=== PATIENT | male | born 1980 | race Hispanic/Latino ===

== ENCOUNTER 2017-02-23 14:02 | Emergency (ER) | payer BC, MEDICAID ==
[2017-02-23 14:23] VITALS: BP 129/80; PULSE 88; RESP 20; TEMP 98.3; O2SAT 98
--- NOTE | 2017-02-23 14:43 | ED PDOC ---
HPI: General Adult Time Seen by Provider: 02/23/17 14:21 Chief Complaint (Nursing): Lower Extremity Problem/Injury History Per: Patient Additional Complaint(s): Pt. states for the past week he's had atraumatic L ankle pain. Reports pain is worsened with walking. Denies trauma, fever, rash, calf pain. Past Medical History Reviewed: Historical Data, Nursing Documentation, Vital Signs Vital Signs: Last Vital Signs Temp 98.3 F 02/23/17 14:20 Pulse 88 02/23/17 14:20 Resp 20 02/23/17 14:20 BP 129/80 02/23/17 14:20 Pulse Ox 98 02/23/17 16:21 - Family History Family History: States: No Known Family Hx - Home Medications Home Medications: Ambulatory Orders Medication Instructions Recorded Cholecalciferol (Vitamin D3) 1 tab PO DAILY 05/14/15 [Vitamin D] Ibuprofen [Motrin] 600 mg PO Q8 #20 tab 05/15/15 Meloxicam [Mobic] 15 mg PO DAILY PRN #15 tab 02/23/17 - Allergies Allergies/Adverse Reactions: Allergies Allergy/AdvReac Type Severity Reaction Status Date / Time No Known Allergies Allergy Verified 02/23/17 14:19 Review of Systems ROS Statement: Except As Marked, All Systems Reviewed And Found Negative Physical Exam - Physical Exam Appears: Positive for: Well, Non-toxic, No Acute Distress Skin: Positive for: Normal Color, Warm. Negative for: Rash Pulses-Dorsalis Pedis (L): 2+ Pulses-Dorsalis Pedis (R): 2+ Extremity: Positive for: Normal ROM, Other (L ankle without swelling, tenderness , deformity, warmth, erythema or break in skin integrity). Negative for: Pedal Edema, Calf Tenderness (b/l) - Laboratory Results Result Diagrams: 02/23/17 14:50 02/23/17 14:50 - ECG O2 Sat by Pulse Oximetry: 98 - Radiology X-Ray: Interpreted by Me (Ankle x-ray) X-Ray Interpretation: Other (DJD on medial malleolus) - Progress ED Course And Treament: Labs ordered. Toradol 15mg IV given. Ankle x-rays ordered. Disposition - Clinical Impression Clinical Impression: Ankle pain - Patient ED Disposition Is Patient to be Admitted: No - Disposition Referrals: Randy Miller MD [Medical Doctor] - Disposition: Routine/Home Disposition Time: 16:20 Condition: STABLE Prescriptions: Meloxicam [Mobic] 15 mg PO DAILY PRN #15 tab PRN Reason: pain Instructions: Arthralgia (ED) Print Language: KOREAN
[2017-02-23 15:05] LABS: BASO # 0.1 K/uL (0.0-0.2); BASO % 0.9 % (0.0-2.0); EOS # 0.3 K/uL (0.0-0.7); EOS % 4.5 % (0.0-4.0); HEMATOCRIT 43.3 % (35.0-51.0); MEAN CELL VOLUME 90.5 fl (80.0-94.0); MEAN CORPUSCULAR HEMOGLOBIN 30.5 pg (27.0-31.0); MEAN CORPUSCULAR HGB CONC 33.7 g/dL (33.0-37.0); MEAN PLATELET VOLUME 8.9 fl (7.2-11.7); MONO # 0.5 K/uL (0.0-0.8); MONO % 7.5 % (0.0-10.0); NEUT # 4.2 K/uL (1.8-7.0); NEUT % 59.1 % (50.0-75.0); RED CELL DISTRIBUTION WIDTH 13.4 % (11.5-14.5); WHITE BLOOD COUNT 7.1 K/uL (4.8-10.8)
[2017-02-23 15:16] LABS: ALB/GLOB RATIO 1.2 (1.0-2.1); ALKALINE PHOSPHATASE 66 U/L (38-126); ALT/SGPT 55 U/L (21-72); AST/SGOT 35 U/L (17-59); BILIRUBIN,TOTAL 0.3 mg/dl (0.2-1.3); BLOOD UREA NITROGEN 14 mg/dl (9-20); CALCIUM 9.1 mg/dL (8.4-10.2); CARBON DIOXIDE 25 mmol/L (22-30); CHLORIDE 107 mmol/L (98-107); GFR AFRICAN-AMERICAN > 60; GLUCOSE,RANDOM 134 mg/dL (75-110); SODIUM 143 mmol/l (132-148); TOTAL PROTEIN 7.8 G/DL (6.3-8.2); URIC ACID 6.1 mg/Dl (3.5-8.5)
--- NOTE | 2017-02-23 17:06 | RAD ---
PROCEDURE: Left ankle 02/23/2017 HISTORY: pain COMPARISON: None FINDINGS: BONES: No evidence of acute displaced fracture nor dislocation. Osseous structures including ankle mortise intact. There appears to be some degenerative changes with osteophyte formation seen arising from the inferior tip of the medial malleolus. There also appears to be some irregularity of the inferomedial aspect of the distal fibula. [id number] posterior and small plantar calcaneal enthesophyte are present. JOINTS: As above. No evidence of dislocation SOFT TISSUES: No significant soft tissue swelling. There are no radiopaque foreign bodies. Normal. OTHER FINDINGS: None. IMPRESSION: No acute fractures. Minor DJD. Calcaneal enthesophytes as above
== END 2017-02-23 16:49 | disposition home or self-care (01) ==
LOC: H.ER 14:02
DX: M25.572 Pain in left ankle and joints of left foot (principal)
CPT/HCPCS: 73610; 80053; 84550; 85025; 96374; 99284; J1885

== ENCOUNTER 2017-09-22 17:02 | Emergency (ER) | payer BC ==
[2017-09-22 17:27] VITALS: RESP 17; O2SAT 98
--- NOTE | 2017-09-22 17:29 | ED PDOC ---
HPI: Chest Pain Time Seen by Provider: 09/22/17 17:18 Chief Complaint (Nursing): Chest Pain Chief Complaint (Provider): Chest Pain History Per: Patient, EMS History/Exam Limitations: no limitations Onset/Duration Of Symptoms: Hrs (2) Current Symptoms Are (Timing): Intermittent Episodes Severity: Moderate Pain Scale Rating Of: 3 Quality: Tightness Exacerbating Factors: Deep Breathing Alleviating Factors: None Additional Complaint(s): Substernal chest tightness radiating to left arm. Not assoc with SOB. No cough, congestion or fever. PMD: Provider TBD Past Medical History Reviewed: Historical Data, Nursing Documentation, Vital Signs Vital Signs: Last Vital Signs Temp 98.1 F 09/22/17 17:24 Pulse 67 09/22/17 17:24 Resp 17 09/22/17 17:24 BP 145/90 09/22/17 17:24 Pulse Ox 98 09/22/17 17:55 - Medical History PMH: No Chronic Diseases - Family History Family History: States: Unknown Family Hx - Home Medications Home Medications: Ambulatory Orders Medication Instructions Recorded Cholecalciferol (Vitamin D3) 1 tab PO DAILY 05/14/15 [Vitamin D] Ibuprofen [Motrin] 600 mg PO Q8 #20 tab 05/15/15 Meloxicam [Mobic] 15 mg PO DAILY PRN #15 tab 02/23/17 - Allergies Allergies/Adverse Reactions: Allergies Allergy/AdvReac Type Severity Reaction Status Date / Time No Known Allergies Allergy Verified 02/23/17 14:19 Review of Systems ROS Statement: Except As Marked, All Systems Reviewed And Found Negative Cardiovascular: Positive for: Chest Pain Physical Exam - Reviewed Nursing Documentation Reviewed: Yes Vital Signs Reviewed: Yes - Physical Exam Appears: Positive for: Non-toxic, No Acute Distress Head Exam: Positive for: ATRAUMATIC, NORMAL INSPECTION, NORMOCEPHALIC Skin: Positive for: Normal Color, Warm, DRY Eye Exam: Positive for: EOMI, Normal appearance, PERRL ENT: Positive for: Normal ENT Inspection Neck: Positive for: Normal, Painless ROM Cardiovascular/Chest: Positive for: Regular Rate, Rhythm Respiratory: Positive for: CNT, Normal Breath Sounds Gastrointestinal/Abdominal: Positive for: Normal Exam, Bowel Sounds, Soft Back: Positive for: Normal Inspection Extremity: Positive for: Normal ROM Neurologic/Psych: Positive for: Alert, Oriented - Laboratory Results Result Diagrams: 09/22/17 17:52 09/22/17 17:52 - ECG O2 Sat by Pulse Oximetry: 98 (RA) Pulse Ox Interpretation: Normal Medical Decision Making Medical Decision Making: Time: 17:27 Plan: - EKG - CMP - Troponin I - CBC - Chest X-Ray - Aspirin 325 mg PO Advised 24 hr obs for chest pain. Pt wants to go home and f/u outpt. Aware of risks including WA, arrhythmia and . Advisd to return immediately to ED if chest pain recurs. Time: 17:48 Chest X-Ray FINDINGS: LUNGS: No active pulmonary disease. PLEURA: No significant pleural effusion identified. No pneumothorax apparent. CARDIOVASCULAR: No radiographic findings to suggest acute or significant cardiovascular disease. OSSEOUS STRUCTURES: No significant abnormalities. VISUALIZED UPPER ABDOMEN: Normal. OTHER FINDINGS: None. IMPRESSION: No active disease. Disposition - Clinical Impression Clinical Impression: Chest pain - Patient ED Disposition Is Patient to be Admitted: No - Disposition Referrals: Shabana Dos Santos MD [Staff Provider] - Disposition: Routine/Home Disposition Time: 18:33 Condition: FAIR Instructions: Chest Pain (ED) Forms: [facility] (Tunisian)
[2017-09-22] MEDS ORDERED: Aspirin 325 mg EC Tablets PO ONE (17:35)
--- NOTE | 2017-09-22 17:50 | RAD ---
HISTORY: chest pain COMPARISON: No prior. TECHNIQUE: Chest PA and lateral FINDINGS: LUNGS: No active pulmonary disease. PLEURA: No significant pleural effusion identified. No pneumothorax apparent. CARDIOVASCULAR: No radiographic findings to suggest acute or significant cardiovascular disease. OSSEOUS STRUCTURES: No significant abnormalities. VISUALIZED UPPER ABDOMEN: Normal. OTHER FINDINGS: None. IMPRESSION: No active disease.
[2017-09-22 17:56] LABS: BASO # 0.1 K/uL (0.0-0.2); BASO % 0.8 % (0.0-2.0); EOS # 0.4 K/uL (0.0-0.7); EOS % 5.3 % (0.0-4.0); HEMATOCRIT 43.3 % (35.0-51.0); LYMPH # 1.8 K/uL (1.0-4.3); LYMPH % 23.9 % (20.0-40.0); MEAN CELL VOLUME 89.9 fl (80.0-94.0); MEAN CORPUSCULAR HEMOGLOBIN 30.9 pg (27.0-31.0); MEAN CORPUSCULAR HGB CONC 34.4 g/dL (33.0-37.0); MEAN PLATELET VOLUME 8.6 fl (7.2-11.7); MONO # 0.6 K/uL (0.0-0.8); MONO % 7.7 % (0.0-10.0); NEUT # 4.6 K/uL (1.8-7.0); NEUT % 62.3 % (50.0-75.0); NRBC % 0.1 % (0.0-0.0); RED CELL DISTRIBUTION WIDTH 13.2 % (11.5-14.5); WHITE BLOOD COUNT 7.3 K/uL (4.8-10.8)
[2017-09-22 18:10] LABS: ALB/GLOB RATIO 1.2 (1.0-2.1); ALKALINE PHOSPHATASE 73 U/L (38-126); ALT/SGPT 54 U/L (21-72); AST/SGOT 31 U/L (17-59); BILIRUBIN,TOTAL 0.3 mg/dl (0.2-1.3); BLOOD UREA NITROGEN 12 mg/dl (9-20); CARBON DIOXIDE 24 mmol/L (22-30); CHLORIDE 107 mmol/L (98-107); GFR AFRICAN-AMERICAN > 60; GLUCOSE,RANDOM 86 mg/dL (75-110); POTASSIUM 3.8 MMOL/L (3.6-5.0); SODIUM 141 mmol/l (132-148); TOTAL PROTEIN 7.9 G/DL (6.3-8.2)
[2017-09-22 18:50] VITALS: BP 125/78; PULSE 78; TEMP 977
--- NOTE | 2017-09-23 08:36 | CARD ---
APPROVED REPORT EKG Measurement Heart [id number] <Conclusion> Normal sinus rhythm with sinus arrhythmia Normal ECG
== END 2017-09-22 18:50 | disposition home or self-care (01) ==
LOC: H.ER 17:02
DX: R07.89 Other chest pain (principal); Z79.82 Long term (current) use of aspirin

== ENCOUNTER 2018-03-12 11:22 | Emergency (ER) | payer BC, OTHER ==
[2018-03-12 11:25] VITALS: BMI 43.5
--- NOTE | 2018-03-12 12:29 | ED PDOC ---
HPI: General Adult Time Seen by Provider: 03/12/18 11:36 Chief Complaint (Nursing): Upper Extremity Problem/Injury Chief Complaint (Provider): Extremity problem History Per: Patient History/Exam Limitations: no limitations Onset/Duration Of Symptoms: Days (x4), Waxing/Waning Current Symptoms Are (Timing): Still Present Additional Complaint(s): Kumar Cronin is a 37 year old male, with a past medical history of migraines and herniated disc to neck and back, who presents to the emergency department complaining of bilateral arm and leg numbness & tingling onset for x4 days. Patient also reports having the same sensation to his face and neck which prompted ED visit. Patient states the sensation waxes and wanes but has been constant to his left arm. He denies any similar symptoms in the past. He did not take any medication today but takes Gabapentin with migraines. He denies any fever, chills, chest pain, headache, difficulty walking or other medical complaints. PMD: [facility] Past Medical History Reviewed: Historical Data, Nursing Documentation, Vital Signs Vital Signs: Last Vital Signs Temp 97.9 F 03/12/18 11:27 Pulse 68 03/12/18 11:27 Resp 20 03/12/18 11:27 BP 129/85 03/12/18 11:27 Pulse Ox 99 03/12/18 17:11 - Medical History PMH: Migraine - Surgical History Surgical History: No Surg Hx - Family History Family History: States: Unknown Family Hx - Home Medications Home Medications: Ambulatory Orders Medication Instructions Recorded Cholecalciferol (Vitamin D3) 1 tab PO DAILY 05/14/15 [Vitamin D] Ibuprofen [Motrin] 600 mg PO Q8 #20 tab 05/15/15 Meloxicam [Mobic] 15 mg PO DAILY PRN #15 tab 02/23/17 Gabapentin 300 mg PO HS #30 capsule 03/12/18 - Allergies Allergies/Adverse Reactions: Allergies Allergy/AdvReac Type Severity Reaction Status Date / Time No Known Allergies Allergy Verified 02/23/17 14:19 Review of Systems ROS Statement: Except As Marked, All Systems Reviewed And Found Negative Constitutional: Negative for: Fever, Chills Cardiovascular: Negative for: Chest Pain Neurological: Positive for: Numbness (wax and wane to b/l upper and lower extremities). Negative for: Headache Physical Exam - Reviewed Nursing Documentation Reviewed: Yes Vital Signs Reviewed: Yes - Physical Exam Appears: Positive for: Non-toxic Head Exam: Positive for: ATRAUMATIC, NORMOCEPHALIC Skin: Positive for: Normal Color, Warm, Dry Eye Exam: Positive for: Normal appearance, EOMI, PERRL Neck: Positive for: Painless ROM, Supple Cardiovascular/Chest: Positive for: Regular Rate, Rhythm. Negative for: Murmur Respiratory: Positive for: Normal Breath Sounds. Negative for: Respiratory Distress Gastrointestinal/Abdominal: Positive for: Normal Exam, Soft. Negative for: Tenderness Back: Negative for: L CVA Tenderness, R CVA Tenderness, Vertebral Tenderness Extremity: Positive for: Normal ROM (upper and lower extremities). Negative for : Tenderness, Deformity, Swelling Neurologic/Psych: Positive for: Alert, Oriented, Gait (steady). Negative for: Motor/Sensory Deficits - Laboratory Results Result Diagrams: 03/12/18 12:15 03/12/18 12:15 - ECG O2 Sat by Pulse Oximetry: 99 (RA) Pulse Ox Interpretation: Normal Medical Decision Making Medical Decision Making: Time: 11:36 Initial Impression: multi-focal paresthesia. Differential includes but not limited to peripheral neuropathy, cervical and lumbar radiculopathy, hypokalemia , hypomagnesemia, and less likely conditions such as MS and CVA. Initial Plan: --Head w/o contrast [CT] --BMP --CPK --Magnesium --CBC w/ differential --Reevaluation 12:[address] FINDINGS: HEMORRHAGE: No intracranial hemorrhage. BRAIN: No mass effect or edema. No atrophy or chronic microvascular ischemic changes. VENTRICLES: Unremarkable. No hydrocephalus. CALVARIUM: Unremarkable. PARANASAL SINUSES: Unremarkable as visualized. No significant inflammatory changes. MASTOID AIR CELLS: Unremarkable as visualized. No inflammatory changes. OTHER FINDINGS: None. IMPRESSION: Normal CT of the Head. No intracranial mass, hemorrhage or evidence of acute infarct. 15:55 -Spoke with Dr. Otero who recommends patient to get Decadron and be prescribed Gabapentin for home. Advise patient to follow up with him. 17:10 -Patient is stable and will be discharged. Return to the ED if symptoms persist or worsen. Follow up with PMD in 1-2 days. ----- Scribe Attestation: Documented by Nasim Stewart, acting as a scribe for Alex Reynolds MD. Provider Scribe Attestation: All medical record entries made by the Scribe were at my direction and personally dictated by me. I have reviewed the chart and agree that the record accurately reflects my personal performance of the history, physical exam, medical decision making, and the department course for this patient. I have also personally directed, reviewed, and agree with the discharge instructions and disposition. Disposition - Clinical Impression Clinical Impression: Neuropathy - Patient ED Disposition Is Patient to be Admitted: No Doctor Will See Patient In The: Office Counseled Patient/Family Regarding: Studies Performed, Diagnosis, Need For Followup - Disposition Referrals: Charles Otero MD [Staff Provider] - Disposition: Routine/Home Disposition Time: 17:26 Condition: GOOD Additional Instructions: Take your medications as instructed. Follow up with your PCP in 2-3 days. Prescriptions: Gabapentin 300 mg PO HS #30 capsule Instructions: Peripheral Neuropathy
[2018-03-12 12:39] LABS: BASO # 0.1 K/uL (0.0-0.2); BASO % 1.2 % (0.0-2.0); EOS # 0.3 K/uL (0.0-0.7); EOS % 5.7 % (0.0-4.0); HEMOGLOBIN 14.8 g/dL (12.0-18.0); LYMPH # 1.3 K/uL (1.0-4.3); LYMPH % 26.1 % (20.0-40.0); MEAN CORPUSCULAR HEMOGLOBIN 31.3 pg (27.0-31.0); MEAN CORPUSCULAR HGB CONC 34.8 g/dL (33.0-37.0); MEAN PLATELET VOLUME 8.6 fl (7.2-11.7); MONO # 0.3 K/uL (0.0-0.8); MONO % 5.3 % (0.0-10.0); NEUT # 3.2 K/uL (1.8-7.0); NEUT % 61.7 % (50.0-75.0); NRBC % 0.2 % (0.0-0.0); RBC 4.72 Mil/uL (4.40-5.90); RED CELL DISTRIBUTION WIDTH 13.4 % (11.5-14.5); WHITE BLOOD COUNT 5.1 K/uL (4.8-10.8)
--- NOTE | 2018-03-12 13:00 | CT ---
PROCEDURE: CT HEAD WITHOUT CONTRAST. HISTORY: paresthesias COMPARISON: 05/09/2008 TECHNIQUE: Axial computed tomography images were obtained through the head/brain without intravenous contrast. Radiation dose: Total exam DLP = 824.99 mGy-cm. This CT exam was performed using one or more of the following dose reduction techniques: Automated exposure control, adjustment of the mA and/or kV according to patient size, and/or use of iterative reconstruction technique. FINDINGS: HEMORRHAGE: No intracranial hemorrhage. BRAIN: No mass effect or edema. No atrophy or chronic microvascular ischemic changes. VENTRICLES: Unremarkable. No hydrocephalus. CALVARIUM: Unremarkable. PARANASAL SINUSES: Unremarkable as visualized. No significant inflammatory changes. MASTOID AIR CELLS: Unremarkable as visualized. No inflammatory changes. OTHER FINDINGS: None. IMPRESSION: Normal CT of the Head. No intracranial mass, hemorrhage or evidence of acute infarct.
[2018-03-12 13:05] LABS: BLOOD UREA NITROGEN 10 mg/dl (9-20); GFR AFRICAN-AMERICAN > 60; GFR NON-AFRICAN AMERICAN > 60
[2018-03-12] MEDS ORDERED: Dexamethasone 4 mg/1 ml IV ONE (15:57)
[2018-03-12] MEDS ORDERED: Dexamethasone 4 mg/1 ml ONE (16:20)
[2018-03-12 17:31] VITALS: BP 122/66; PULSE 72; RESP 16; TEMP 98; O2SAT 100
== END 2018-03-12 17:20 | disposition home or self-care (01) ==
LOC: H.ER 11:22
DX: G62.9 Polyneuropathy, unspecified (principal); M54.16 Radiculopathy, lumbar region; R20.2 Paresthesia of skin
CPT/HCPCS: 70450; 80048; 82550; 83735; 85025; 96374; 99283; J1100

== ENCOUNTER 2018-05-15 21:32 | Emergency (ER) | payer OTHER ==
[2018-05-15 21:32] VITALS: BMI 43.5
[2018-05-15 22:19] VITALS: RESP 16; O2SAT 98
--- NOTE | 2018-05-15 22:33 | ED PDOC ---
HPI: General Adult Time Seen by Provider: 05/15/18 22:29 Chief Complaint (Nursing): Lower Extremity Problem/Injury Chief Complaint (Provider): pain to hands and feet History Per: Patient Additional Complaint(s): 37-year-old male presents to emergency department with pain to bilateral hands and feet as well as swelling. Patient states he went to work this morning and felt fine but gradually throughout the day he started to notice pain and swelling. Patient denies trauma or injury. He denies any shortness of breath or chest pain. 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 He takes gabapentin daily but denies taking any other meds. No associated alcohol or drug use. Patient states when he took off his socks after his work today and he noticed discoloration to bilateral ankles that she has never seen before. Patient also states that as of 3 hours ago he developed slight dull headache. PMD: [facility] Past Medical History Reviewed: Historical Data, Nursing Documentation, Vital Signs Vital Signs: Last Vital Signs Temp 98.5 F 05/15/18 22:13 Pulse 87 05/15/18 22:13 Resp 16 05/15/18 22:13 BP 140/85 05/15/18 22:13 Pulse Ox 98 05/15/18 23:43 - Medical History PMH: Fibromyalgia, Migraine, Sleep Apnea Other PMH: peripheral neuropathy - Surgical History Surgical History: No Surg Hx - Family History Family History: States: No Known Family Hx - Living Arrangements Living Arrangements: With Family - Social History Current smoker - smoking cessation education provided: No Alcohol: None Drugs: Denies - Home Medications Home Medications: Ambulatory Orders Medication Instructions Recorded Cholecalciferol (Vitamin D3) 1 tab PO DAILY 05/14/15 [Vitamin D] Ibuprofen [Motrin] 600 mg PO Q8 #20 tab 05/15/15 Meloxicam [Mobic] 15 mg PO DAILY PRN #15 tab 02/23/17 Gabapentin 300 mg PO HS #30 capsule 03/12/18 - Allergies Allergies/Adverse Reactions: Allergies Allergy/AdvReac Type Severity Reaction Status Date / Time No Known Allergies Allergy Verified 02/23/17 14:19 Review of Systems ROS Statement: Except As Marked, All Systems Reviewed And Found Negative Constitutional: Negative for: Fever, Chills Eyes: Negative for: Vision Change Cardiovascular: Negative for: Chest Pain Respiratory: Negative for: Cough, Shortness of Breath Gastrointestinal: Negative for: Nausea, Vomiting Musculoskeletal: Positive for: Other (Pain and swelling to bilateral hands and feet) Neurological: Positive for: Headache. Negative for: Weakness, Numbness, Incoordination, Change in Speech, Confusion, Seizures, Altered Mental Status, Dizziness Physical Exam - Reviewed Nursing Documentation Reviewed: Yes Vital Signs Reviewed: Yes - Physical Exam Appears: Positive for: Well, Non-toxic, No Acute Distress Skin: Positive for: Normal Color Eye Exam: Positive for: Normal appearance Neck: Positive for: Normal Cardiovascular/Chest: Positive for: Regular Rate, Rhythm Respiratory: Positive for: Normal Breath Sounds. Negative for: Respiratory Distress Gastrointestinal/Abdominal: Positive for: Other (Morbid obese nontender abdomen) Back: Negative for: L CVA Tenderness, R CVA Tenderness Extremity: Positive for: Other (1+ edema noted to bilateral lower extremities, petechial rash noted to medial aspect of bilateral ankles, normal range of motion bilateral upper extremities) Neurologic/Psych: Positive for: Alert, pr specialist II-XII (grossly intact), Oriented, Gait (steady). Negative for: Motor/Sensory Deficits, Aphasia, Facial Droop - ECG O2 Sat by Pulse Oximetry: 98 Pulse Ox Interpretation: Normal - Other Rad CT head X-Ray: Read By Radiologist X-Ray Interpretation: no acute finding Medical Decision Making Medical Decision Makin-year-old male with pain and swelling to bilateral upper and lower extremities. Plan: CT head CBC CMP Troponin BNP PT/PTT EKG IV toradol Disposition - Clinical Impression Clinical Impression: Neuropathy - Patient ED Disposition Is Patient to be Admitted: Transfer of Care - Disposition Disposition: Transfer of Care Disposition Time: 00:05 Condition: STABLE Forms: [facility] (American) Patient Signed Over To: Mireille Tidwell Handoff Comments: Signed out pending labs and final disposition
--- NOTE | 2018-05-16 00:10 | ED PDOC ---
- Laboratory Results Result Diagrams: 05/15/18 23:45 05/15/18 23:45 Urine dip results: Negative for: Leukocyte Esterase, Blood, Nitrate, Ketones, Glucose, Bilirubin, Protein - ECG O2 Sat by Pulse Oximetry: 98 (RA) Pulse Ox Interpretation: Normal Medical Decision Making Medical Decision Making: Case endorsed to engineering technical writer, Yaw BHANDARI, at 0000 pending lab results, EKG, re- evaluation, and further disposition. Pertinent details reviewed. Head CT reviewed, radiology report follows EXAM: CT Head Without Intravenous Contrast CLINICAL HISTORY: 37 years old, male; Signs and symptoms; Numbness / parasthesia; Additional info : Numbness to hands and feet TECHNIQUE: Axial computed tomography images of the head/brain without intravenous contrast. All CT scans at this facility use at least one of these dose optimization techniques: automated exposure control; mA and/or kV adjustment per patient size (includes targeted exams where dose is matched to clinical indication); or iterative reconstruction. Coronal and sagittal reformatted images were created and reviewed. COMPARISON: CT - HEAD W/O CONTRAST 2018-03-12 12:24 FINDINGS: Brain: Minimal atrophy. No intracranial hemorrhage. No mass. No definite edema. Ventricles: No hydrocephalus. Bones/joints: No acute fracture. Soft tissues: Unremarkable. Sinuses: No acute sinusitis. Mastoid air cells: No significant effusion. Orbits: Unremarkable as visualized. IMPRESSION: 1. No definite acute intracranial abnormality. Acute infarction may be CT occult within first 24 hours. If a focal deficit persists, consider followup CT or MRI for further evaluation. 2. Incidental/non-acute findings are described above. Thank you for allowing us to participate in the care of your patient. Dictated and Authenticated by: Chriss Wilson MD 05/15/2018 11:42 PM Eastern Time ([place] & [place]) 0010 Udip reviewed and unremarkable. 0100 EKG: NSR @ 73bpm (-) ST elevation, QTc 423 0125 Coag profile, CMP, and CBC unremarkable. Troponin <0.01 BNP: 11.1 On re-evaluation, patient reports improvement of symptoms. On exam, patient remains AAOx3, in no acute distress. Lungs clear to auscultation, cardiac RRR, abdomen soft, non-tender, repeat neuro exam shows no focal findings. VSS, stable for discharge. Lab / Diagnostic results d/w the patient in great detail. Diagnosis of peripheral neuropathy d/w the patient. Based on history, exam and diagnostic results, plan will be for outpatient follow up with PMD/rheumatology. Patient instructed to follow-up with pmd / referral provided / the clinic in 1- 2 days without fail. Advised to take medication as prescribed. Return to the emergency room at any time for any new or worsening symptoms. Patient states he fully agrees with and understands discharge instructions. States that he agrees with the plan and disposition. Verbalized and repeated discharge instructions and plan. I have given the patient opportunity to ask any additional questions. Disposition Counseled Patient/Family Regarding: Studies Performed, Diagnosis, Need For Followup, Rx Given - Clinical Impression Clinical Impression: Neuropathy - POA Present On Arrival: None - Disposition Referrals: [facility] [Provider Group] Disposition: Routine/Home Disposition Time: 01:30 Condition: STABLE Additional Instructions: The emergency medical care you received today was directed towards the acute presenting symptoms. If you were prescribed any medication, please fill it and give as directed. It may take several days for your symptoms to resolve. Return to the Emergency Department at any time if symptoms worsen, do not improve, or if any other problems arise. Please contact your doctor in 2 days for re-evaluation and follow up / or call one of the physicians/clinics you have been referred to that are listed on the Patient Visit Information form that is included in your discharge packet. Bring any paperwork you were given at discharge with you along with any medications to your follow up visit. Our treatment cannot replace ongoing medical care by a primary care provider (PCP) outside of the emergency department. Prescriptions: Naproxen 500 mg PO BID PRN #20 tab PRN Reason: Pain, Moderate (4-7) Instructions: Peripheral Neuropathy (DC) Forms: [employer] (Icelandic) Print Language: CENTRAL AFRICAN Results - Lab Results Lab Results: 05/15/18 05/15/18 05/15/18 23:45 23:45 23:45 WBC 7.6 RBC 4.66 Hgb 14.5 Hct 42.4 MCV 91.0 MCH 31.1 H MCHC 34.2 RDW 13.7 Plt Count 220 MPV 8.7 Neut % (Auto) 59.2 Lymph % (Auto) 27.7 [place] % (Auto) 7.5 Eos % (Auto) 5.1 H Baso % (Auto) 0.5 Neut # (Auto) 4.5 Lymph # (Auto) 2.1 [place] # (Auto) 0.6 Eos # (Auto) 0.4 Baso # (Auto) 0.0 PT 11.3 INR 1.0 APTT 35.4 Sodium 143 Potassium 3.7 Chloride 108 H Carbon Dioxide 27 Anion Gap 12 BUN 11 Creatinine 0.9 Est GFR ( Amer) > 60 Est GFR (Non-Af Amer) > 60 Random Glucose 89 Calcium 9.1 Total Bilirubin 0.5 AST 54 ALT 64 Alkaline Phosphatase 76 Troponin I < 0.0120 NT-Pro-B Natriuret Pep 11.1 Total Protein 7.7 Albumin 4.2 Globulin 3.5 Albumin/Globulin Ratio 1.2
[2018-05-16 00:51] LABS: BASO % 0.5 % (0.0-2.0); EOS # 0.4 K/uL (0.0-0.7); EOS % 5.1 % (0.0-4.0); HEMOGLOBIN 14.5 g/dL (12.0-18.0); LYMPH # 2.1 K/uL (1.0-4.3); LYMPH % 27.7 % (20.0-40.0); MEAN CORPUSCULAR HEMOGLOBIN 31.1 pg (27.0-31.0); MEAN CORPUSCULAR HGB CONC 34.2 g/dL (33.0-37.0); MEAN PLATELET VOLUME 8.7 fl (7.2-11.7); MONO # 0.6 K/uL (0.0-0.8); MONO % 7.5 % (0.0-10.0); NEUT # 4.5 K/uL (1.8-7.0); NEUT % 59.2 % (50.0-75.0); RBC 4.66 Mil/uL (4.40-5.90); RED CELL DISTRIBUTION WIDTH 13.7 % (11.5-14.5); WHITE BLOOD COUNT 7.6 K/uL (4.8-10.8)
[2018-05-16 00:54] LABS: PROTHROMBIN TIME 11.3 Seconds (9.8-13.1)
[2018-05-16 00:57] LABS: PARTIAL THROMBOPLASTIN TIME 35.4 Seconds (25.6-37.1)
[2018-05-16 01:10] LABS: ALB/GLOB RATIO 1.2 (1.0-2.1); ALBUMIN 4.2 g/dL (3.5-5.0); ALT/SGPT 64 U/L (21-72); AST/SGOT 54 U/L (17-59); BLOOD UREA NITROGEN 11 mg/dl (9-20); CALCIUM 9.1 mg/dL (8.4-10.2); GFR AFRICAN-AMERICAN > 60; GFR NON-AFRICAN AMERICAN > 60
[2018-05-16 01:22] LABS: B-TYPE NATRIURETIC PEPTIDE 11.1 pg/ml (0-450)
[2018-05-16 01:44] VITALS: BP 141/86; PULSE 82; TEMP 98
--- NOTE | 2018-05-16 07:39 | CT ---
Date of service: 05/15/2018 PROCEDURE: CT HEAD WITHOUT CONTRAST. HISTORY: numbness to hands and feet COMPARISON: CT head dated 03/12/2018 TECHNIQUE: Axial computed tomography images were obtained through the head/brain without intravenous contrast. Radiation dose: Total exam DLP = 1133 mGy-cm. This CT exam was performed using one or more of the following dose reduction techniques: Automated exposure control, adjustment of the mA and/or kV according to patient size, and/or use of iterative reconstruction technique. FINDINGS: HEMORRHAGE: No intracranial hemorrhage. BRAIN: Minimal atrophy. VENTRICLES: Unremarkable. No hydrocephalus. CALVARIUM: Unremarkable. PARANASAL SINUSES: Unremarkable as visualized. No significant inflammatory changes. MASTOID AIR CELLS: Unremarkable as visualized. No inflammatory changes. OTHER FINDINGS: None. IMPRESSION: No acute intracranial abnormality. Minimal atrophy. If symptoms persists, consider correlation with MRI. These findings were preliminarily reported at 11:42 p.m. on 05/15/[address] Chriss Wilson from [facility].
--- NOTE | 2018-05-16 08:31 | CARD ---
APPROVED REPORT Date of service: 05/16/2018 <Conclusion> Normal sinus rhythm Normal ECG
== END 2018-05-16 01:44 | disposition home or self-care (01) ==
LOC: H.ER 21:32
DX: G62.9 Polyneuropathy, unspecified (principal); M79.7 Fibromyalgia; R51 Headache; R60.0 Localized edema
CPT/HCPCS: 70450; 80053; 83880; 84484; 85025; 85610; 85730; 93005; 99283; J1885